=== PATIENT | male | born 1935 | race Caucasian/White ===

== ENCOUNTER 2017-01-17 10:30 | Inpatient (IN) | payer MEDICARE ==
[2017-01-17 11:54] LABS: #Basophils 0.1 thou/uL (0.0-0.2); #Eosinphils 0.2 thou/uL (0.0-0.7); #Lymphocytes 2.4 thou/uL (1.20-3.40); #Monocytes 0.8 thou/uL (0.11-0.59); #Neutrophils 5.1 thou/uL (1.40-6.50); %Basophils 0.8 % (0.0-1.0); %Eosinophils 2.1 % (0.0-10.0); %Lymphocytes 27.9 % (21.0-51.0); Hematocrit 50.5 % (42.0-52.0); Mean Platelet Volume 7.6 fL (7.4-10.4); Red Blood Cell (RBC) Count 5.49 mill/uL (4.70-6.10); White Blood Cell (WBC) Count 8.5 thou/uL (4.8-10.8)
[2017-01-17 12:09] LABS: ALT (SGPT) 27 U/L (8-55); AST (SGOT) 20 U/L (5-34); Alkaline Phosphatase 90 U/L (40-150); Anion Gap 13 mmol/L (10-20); BUN (Urea Nitrogen) 16 mg/dL (8.4-25.7); Bilirubin, Total 0.8 mg/dL (0.2-1.2); Calc. Creatinine Clearance 0 mL/min (70-130); Calcium 9.8 mg/dL (7.8-10.44); Carbon Dioxide 26 mmol/L (23-31); Chloride 103 mmol/L (98-107); Estimated GFR-MDRD 61; Globulin 3.7 g/dL (2.4-3.5); Protein, Total 8.1 g/dL (5.8-8.1)
[2017-01-17] MEDS ORDERED: ISOVUE-370 76%-LOCM 1 ML ONE (13:19)
--- NOTE | 2017-01-17 14:04 | CT ---
CTA OF THE HEAD AND NECK UTILIZING IV CONTRAST AND 3D REFORMATTED IMAGING: Date: 01/17/17 HISTORY: Right-sided Josh syndrome. TECHNIQUE: Multiple CTA images were obtained of the head and neck utilizing IV contrast and 3D reformatted imagi ng. FINDINGS: The visualized lung apices are clear. The visualized upper mediastinum appears within normal limits. The aortic arch and great vessels have a normal origin. The right common carotid artery is widely pat ent. The right internal carotid artery is widely patent. The left common carotid artery and cervical left internal carotid artery appear widely patent. There are vascular calcifications involving the cavernous segments of the carotid arteries bilaterally. No definite hemodynamically significant stenosis evident. Visualized aspects of the ACAs, MCAs, and child support investigator are widely patent. The right ASIC DESIGN ENGINEER has a origin. The basilar artery is patent. The vertebral art eries are widely patent. The left vertebral proximal segment is highly tortuous. There is scattered degenerative and osteoarthritic change of the visualized skeletal structures. The prevertebral soft tissues appear within normal limits. No lymphadenopathy is evident. The visualized aerodigestive tract appears within normal limits. No area of abnormal enhancement is seen involving t he brain parenchyma. IMPRESSION: 1. No hemodynamically significant stenosis demonstrated. 2. No lung apical mass or mediastinal lymphadenopathy demonstrated. 3. No lymphadenopathy or soft tissue mass of the neck demonstrated. 4. origin of the right ASIC DESIGN ENGINEER. 5. Other chronic findings as above. POS: [facility]
[2017-01-17] MEDS ORDERED: Aggrenox 200-25mg CAP PO SCH (14:30)
--- NOTE | 2017-01-17 15:25 | MRI ---
MRI BRAIN NONCONTRAST: History: Right sided Josh syndrome. FINDINGS: There is no evidence of acute intracranial hemorrhage or infarct. Diffuse cortical atrophy and mild chronic ischemic small vessel disease is apparent. Dystrophic calcification is associated with each basal ganglia. There is no mass effect or shift of midline structures. Visualized paranasal sinuses remain well aerated. IMPRESSION: No acute intracranial abnormalities are demonstrated. POS: [facility]
[2017-01-17 16:54] VITALS: BMI 26.1
[2017-01-17] MEDS ORDERED: Ondansetron ODT 4 MG TAB SL PRN (17:05)
[2017-01-17] MEDS ORDERED: Ondansetron HCl/PF 4 MG/2 ML Vial IVP PRN ×2 (17:05→19:05)
[2017-01-17] MEDS ORDERED: Acetaminophen 325 MG TAB PO PRN ×2 (17:05→19:05)
[2017-01-17] MEDS ORDERED: Senokot 8.6 MG TAB PO PRN (19:05)
[2017-01-17] MEDS ORDERED: Calcium Carbonate 500 MG ChewTAB PO PRN (19:05)
[2017-01-17] MEDS ORDERED: Ondansetron ODT 4 MG TAB PO PRN (19:05)
[2017-01-17] MEDS ORDERED: hydrALAZINE 20 MG/ML VIAL SLOW IVP PRN (19:10)
[2017-01-17] MEDS ORDERED: predniSONE 20 MG TAB PO SCH (19:30)
--- NOTE | 2017-01-17 19:38 | HP ---
DATE OF ADMISSION: 01/17/2017 PRIMARY CARE PHYSICIAN: Calixto Mabry M.D. PRIMARY PRODUCTION WEIGHER: Bryan Camarena M.D. CHIEF COMPLAINT: Double vision with right eye ptosis. CODE STATUS: FULL CODE. SURROGATE DECISION MAKER: The patient makes his own decision with the help of his family. HISTORY OF PRESENT ILLNESS: The patient is an 81-year-old male with coronary artery disease and hyp ertension, who presented to the emergency room with above complaints. Approximately one month ago, the patient developed sudden onset of right eye drooping along with tyesha ble vision. It started the next day after the flu shot. His symptoms progressively got worse. He denied any headache, swallowing difficulty, speech difficulty, weakness, numbness of any of his extr emities or sensory disturbances. He was evaluated by Ophthalmology 2 weeks ago and was started on c orticosteroid ointment with some improvement in the eyelid swelling. However, his double vision did not improve. Today, he was seen by Dr. Sanders, who advised him to go to the emergency room for ev aluation. In the emergency room, his initial vital signs showed temperature of 97.3, respirations 18, pulse of 80, blood pressure 124/78 with O2 saturation 95% on room air. CTA of the head and neck was negativ e. He also had an MRI of the brain that was negative for acute CVA. He received Aggrenox in the em ergency room for suspected CVA. PAST MEDICAL HISTORY: 1. Coronary artery disease status post CABG with stent placement followed by Dr. Camarena. 2. Hypertension. 3. Hyperlipidemia. 4. Gout. PAST SURGICAL HISTORY: 1. Cardiac catheterization. 2. Coronary artery bypass grafting. ALLERGIES: No known drug allergies. CURRENT HOME MEDICATIONS: Aspirin 81 mg daily, allopurinol 300 mg at bedtime, amitriptyline 10 mg a t bedtime, aspirin 81 mg daily, Lipitor 20 mg daily, Coreg 3.125 mg b.i.d., vitamin D3 1000 mg at be dtime, Nexium 40 mg daily, fish oil 350 mg daily, and Lisinopril 2.5 mg daily. SOCIAL HISTORY: The patient currently lives at home with his family. No history of smoking, alcoho l or drug use. FAMILY HISTORY: Mother of bone cancer at the age of 88. REVIEW OF SYSTEMS: The following complete review of systems was negative, unless otherwise mentione d in the HPI or below: Constitutional: Weight loss or gain, ability to conduct usual activities. Skin: Rash, itching. Eyes: Double vision, pain. ENT/Mouth: Nose bleeding, neck stiffness, pain, tenderness. Cardiovascular: Palpitations, dyspnea on exertion, orthopnea. Respiratory: Shortness of breath, wheezing, cough, hemoptysis, fever or night sweats. Gastrointestinal: Poor appetite, abdominal pain, heartburn, nausea, vomiting, constipation, or diar april. Genitourinary: Urgency, frequency, dysuria, nocturia. Musculoskeletal: Pain, swelling. Neurologic/Psychiatric: Anxiety, depression. Allergy/Immunologic: Skin rash, bleeding tendency. PHYSICAL EXAMINATION: VITAL SIGNS: As discussed above. GENERAL: An 81-year-old male in no significant distress. HEENT: Head, atraumatic and normocephalic. Right eye ptosis, pupils are slightly dilated. Good re sponse to light. His findings are consistent with third nerve palsy. He was unable to adduction. He had double vision when trying to focus. Moist mucous membranes. No oral lesion. NECK: Supple, no JVD, no carotid bruit. LUNGS: Clear to auscultation bilaterally. HEART: S1, S2 present. Regular rate and rhythm. No rubs or gallops. Healed midline scar from pre vious CABG. ABDOMEN: Soft, nontender, bowel sounds present. EXTREMITIES: No edema or calf tenderness. NEUROLOGIC: The cranial nerves were normal on examination. Power was 5/5 in all extremities. Fing er-to-nose and qbjg-yr-kdik test was normal. Reflexes were equivocal. Sensation to touch was nidia l bilaterally. SKIN: Warm and dry. LYMPH NODES: No palpable lymph nodes in the neck. PSYCHIATRY: Alert, awake, and oriented x3. PERIPHERAL VASCULAR: Radial pulses palpable bilaterally. MUSCULOSKELETAL: No joint swelling or tenderness. LABORATORY AND X-RAY FINDINGS: ESR and CRP in normal range. Cardiac enzymes are normal. BUN 16 an d creatinine 1.1. LFTs and electrolytes in normal range. CBC showed WBC 8.5 with hemoglobin 16.9 a nd hematocrit 50.5. Telemetry monitoring by my review showed sinus rhythm. IMPRESSION: 1. 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 2. Coronary artery disease, status post coronary artery bypass graft with stent placement. 3. Hypertension. 4. Dyslipidemia. 5. Chronic kidney disease stage 2. 6. Gout. PLAN: 1. The patient will be monitored in the stroke unit. Ophthalmology will be consulted. I discussed the case with Ophthalmology, Dr. Arndt. He recommended 60 mg prednisone on a daily basis. His s ymptoms are going on for approximately 1 month. I will also discuss with Neurology, Dr. Meza who re commended outpatient followup. The patient recently had an echocardiogram with Dr. Camarena. We will continue to monitor on the embedded case manager. We will continue aspirin for now. 2. Disposition probably in a.m. after ophthalmology evaluation. 3. Plan of care was discussed with the patient and the family at the bedside. They stated understa nding.
[2017-01-17] MEDS ORDERED: Atorvastatin Calcium 20 MG TAB PO SCH (21:00)
[2017-01-17] MEDS ORDERED: Allopurinol 300 MG TAB PO SCH (21:00)
[2017-01-17] MEDS ORDERED: Amitriptyline HCl 10 MG TAB PO SCH (21:00)
[2017-01-17] MEDS: Artificial Tears 18 DROP/0.9 ML R EYE SCH (21:22)
[2017-01-17] MEDS: Carvedilol 3.125 MG TAB PO SCH (21:25)
[2017-01-17] MEDS: Loteprednol Etabonate 0.5% Ophth Suspension 5 ml Bottle R EYE SCH (21:25)
[2017-01-18] MEDS ORDERED: Melatonin 3 MG TAB PO SCH (00:30)
[2017-01-18] MEDS: Artificial Tears 18 DROP/0.9 ML R EYE SCH ×5 (01:38→17:23)
[2017-01-18] MEDS: Loteprednol Etabonate 0.5% Ophth Suspension 5 ml Bottle R EYE SCH ×3 (08:41→17:23)
[2017-01-18] MEDS: Carvedilol 3.125 MG TAB PO SCH (08:42)
[2017-01-18] MEDS: predniSONE 20 MG TAB PO SCH ×3 (08:42→17:24)
[2017-01-18] MEDS ORDERED: Lisinopril 2.5 MG TAB PO SCH (09:00)
[2017-01-18] MEDS ORDERED: Aspirin 81 mg Enteric Coated Tablet PO SCH (09:00)
--- NOTE | 2017-01-18 11:01 | DIS ---
DATE OF DISCHARGE: 01/18/2017 DISCHARGE DISPOSITION: Home. FOLLOWUP: Follow up with Dr. Camarena in 1 week. The patient also follows Dr. Mabry. Follow up with Dr Arndt and Dr Meza. INPATIENT HEATER ROOM HELPER: Ophthalmology, Dr. Arndt. ALLERGIES: No known drug allergies. The patient was seen and examined on the day of discharge, denies any new complaints. No new focal neurologic deficits. BRIEF HOSPITAL COURSE: The patient is an 81-year-old male with coronary artery disease, status post CABG and hypertension, presented to the hospital with double vision with right eye ptosis of 1 month duration. The patient was sent to the emergency room by Dr. Sanders (Pipe Changer). Please refer to the history and physical for further details. The patient was admitted to the hospital with the diagnosis of suspected acute CVA. MRI of the brain was negative. CTA of the head and neck was hemodynamically significant for stenosis or aneurysm. The right PAYABLE REPRESENTATIVE was in origin. The case was discussed extensively with Ophthalmology, Dr. Arndt as well as Neurology, Dr. Maria Dolores Meza. The patient will continue 81 mg aspirin. He probably has ischemic right third nerve palsy. He was started on steroids. The patient was evaluated by Dr. Arndt (Ophthalmology). He recommended to increase Aspirin to 325 mg daily. FINAL DIAGNOSES: 1. Right third nerve palsy, suspected secondary to ischemia. 2. Coronary artery disease, status post coronary artery bypass graft and stent placement. 3. Hypertension. 4. Dyslipidemia. 5. Chronic kidney disease stage 2. 6. Gout. DISCHARGE MEDICATIONS: Same as admission medications: 1. Allopurinol 300 mg at bedtime. 2. Amitriptyline 10 mg at bedtime. 3. Aspirin 325 mg daily. (dose increased) 4. Lipitor 20 mg at bedtime. 5. Coreg 3.125 mg b.i.d. 6. Vitamin D3 1000 units daily. 7. Nexium 40 mg daily. 8. Fish oil 350 mg daily. 9. Lisinopril 2.5 mg daily. The patient will be discharged later today after cleared by Ophthalmology. [facility]
[2017-01-18 15:50] VITALS: BP 138/86; TEMP 97.7
== END 2017-01-18 17:13 | disposition home or self-care (01) | DRG 123 ==
LOC: ERS 10:30 → 2SE 14:21
PROVIDERS: ADMIT Internal Medicine; ATTEND Internal Medicine
DX: H49.01 Third [oculomotor] nerve palsy, right eye (principal); Z95.1 Presence of aortocoronary bypass graft; I12.9 Hypertensive chronic kidney disease with stage 1 through stage 4 chronic kidney disease, or unspecified chronic kidney disease; E78.5 Hyperlipidemia, unspecified; I25.10 Atherosclerotic heart disease of native coronary artery without angina pectoris; Z95.5 Presence of coronary angioplasty implant and graft; M10.9 Gout, unspecified; N18.2 Chronic kidney disease, stage 2 (mild)
CPT/HCPCS: 70496; 70498; 70551; 80053; 82553; 84484; 85025; 85652; 86140; J7506

== ENCOUNTER 2018-10-05 12:44 | Emergency (ER) | payer MEDICARE ==
[2018-10-05 14:14] LABS: #Eosinphils 0.3 thou/uL (0.0-0.7); #Lymphocytes 2.4 thou/uL (1.20-3.40); #Monocytes 0.9 thou/uL (0.11-0.59); #Neutrophils 6.1 thou/uL (1.40-6.50); %Basophils 0.4 % (0.0-1.0); %Eosinophils 3.4 % (0.0-10.0); %Lymphocytes 24.7 % (21.0-51.0); %Monocytes 9.2 % (0.0-10.0); %Neutrophils 62.4 % (42.0-75.0); Hemoglobin 14.8 g/dL (14.0-18.0); Mean Corpuscular HGB CONC 32.4 g/dL (32.0-36.0); Mean Corpuscular Hemoglobin 28.4 pg (27.0-31.0); Mean Corpuscular Volume 87.6 fL (78.0-98.0); Platelet Count 235 thou/uL (130-400); White Blood Cell (WBC) Count 9.8 thou/uL (4.8-10.8)
[2018-10-05 14:29] LABS: ALT (SGPT) 24 U/L (8-55); AST (SGOT) 21 U/L (5-34); Albumin 4.6 g/dL (3.4-4.8); Alkaline Phosphatase 132 U/L (40-150); Anion Gap 12 mmol/L (10-20); BUN (Urea Nitrogen) 18 mg/dL (8.4-25.7); Bilirubin, Total 0.9 mg/dL (0.2-1.2); Calc. Creatinine Clearance 0 mL/min (70-130); Calcium 10.2 mg/dL (7.8-10.44); Carbon Dioxide 25 mmol/L (23-31); Chloride 102 mmol/L (98-107); Estimated GFR-MDRD 80; Globulin 3.9 g/dL (2.4-3.5); Glucose 102 mg/dL (83-110); Potassium 4.1 mmol/L (3.5-5.1); Protein, Total 8.5 g/dL (5.8-8.1); Sodium 135 mmol/L (136-145)
[2018-10-05] MEDS ORDERED: HYDROcodone/Acetaminophen 5/325 mg Tablet ONE (15:03)
[2018-10-05 15:09] LABS: Bilirubin Negative (Negative); Blood, Urine Negative (Negative); Glucose, Urine (Dipstick) Negative (Negative); Leukocyte Negative (Negative); Nitrite Negative (Negative); Protein, Urine (Dipstick) Negative (Neg-Trace)
[2018-10-05 15:10] LABS: Clarity Clear (Clear)
--- NOTE | 2018-10-05 15:49 | RAD ---
LUMBAR SPINE 2 VIEWS: Date: 10/05/18 HISTORY: Low back pain since . History of chronic back pain. FINDINGS: Severe multilevel disc osteophytosis with mild levoscoliosis. Grade I/II anterolisthesis of L5 on S1. Stent material overlying the right upper abdomen, probably indwelling biliary stent. IMPRESSION: Severe spondylosis. Mild levoscoliosis. Chronic appearing anterolisthesis of L5 on S1. Other findings as above. POS: [facility]
== END 2018-10-05 16:18 | disposition home or self-care (01) ==
LOC: ERS 12:44
DX: M54.5 Low back pain (principal); K21.9 Gastro-esophageal reflux disease without esophagitis; E87.1 Hypo-osmolality and hyponatremia
CPT/HCPCS: 36415; 72100; 80053; 81003; 85025; 87086

== ENCOUNTER 2018-10-13 09:39 | Outpatient (CLI) | payer MEDICARE ==
[2018-10-13] MEDS ORDERED: ISOVUE-370 76%-LOCM 1 ML ONE (10:06)
--- NOTE | 2018-10-13 11:10 | CT ---
CT Abdomen Pelvis W WO con History: Malignant neoplasm ampulla Comparison: None. Findings: Given lack of comparison examination, treatment response is unable to be performed. Subtle nodule right lung base abutting the diaphragm measuring 5 mm. No pericardial effusion. Extensive biliary gas with intrahepatic and extrahepatic biliary dilatation. There is reflux of enter ic contrast in the distal common bile duct with abnormal hyperenhancement suggesting cholangitis. There appears be debris within the distal common bile duct stent. Mild dilatation of the pancreatic d uct. No definite pancreatic mass is appreciated. No abnormal vika hepatis adenopathy. Portal vein is patent. Spleen is intact. No nephrolithiasis. No hydronephrosis. Aortic contour is nonaneurysmal. No acute osseous abnormality. 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 Moderate diverticular disease of the sigmoid colon without active current inflammation. There appears be a large posterior bladder diverticulum measuring approximately 3.9 x 5 x 5 cm. Impression: 1. High-grade intrahepatic and extrahepatic biliary dilatation concerning for stent malfunction. Ther e is reflux of contrast within the distal common bile duct likely retrograde from the stent and less likely due to erosion and fistulization from the second portion of duodenum. 2. Abnormal hyperenhancement distal common bile duct suggesting cholangitis. 3. Mild dilatation of the pancreatic duct without definite mass appreciated. 4. No metastatic vika hepatis adenopathy. 5. Large posterior bladder diverticulum. 6. 5 mm nodule right lung base abutting the diaphragm. Recommend correlation with prior imaging. 7. Subtle round 11 mm hepatic segment 6 mass only seen on the delayed phase of contrast may be sequel ae of biliary dilatation and regenerative nodule below metastasis cannot be totally excluded.
== END 2018-10-13 09:40 | disposition home or self-care (01) ==
LOC: BICCT 09:39
PROVIDERS: ATTEND Radiology Radiation Oncology
DX: C24.1 Malignant neoplasm of ampulla of Vater (principal); N32.3 Diverticulum of bladder; R91.1 Solitary pulmonary nodule; K76.89 Other specified diseases of liver; K83.8 Other specified diseases of biliary tract; K86.89 Other specified diseases of pancreas; Z92.3 Personal history of irradiation; Z92.21 Personal history of antineoplastic chemotherapy
CPT/HCPCS: 74178; Q9966

== ENCOUNTER 2018-12-22 09:54 | Outpatient (CLI) | payer MEDICARE ==
[2018-12-22] MEDS ORDERED: ISOVUE-370 76%-LOCM 1 ML ONE (10:03)
--- NOTE | 2018-12-22 12:02 | CT ---
CT chest with IV contrast CT abdomen and pelvis with IV contrast HISTORY: Pancreatic cancer. Restaging. COMPARISON: 10/13/2018. FINDINGS: Mild atelectasis at each lung bases. The tiny noncalcified nodule at the lateral aspect of the right lung base abutting the diaphragmatic pleura is stable. No new nodules. No pneumothorax or mediastinal adenopathy.. Reflux of contrast into the dilated esophagus. Biliary stent remains in place with distention of the biliary system and pneumobilia similar in appea renny to the prior exam. Borderline distention of the pancreatic duct is stable. No mass is visible at the ampulla. Within the anterior segment right liver lobe, an ill-defined, subtle low density mass now measures up to 1.4 cm greatest diameter. It is significantly more conspicuous than on previous exams. On axial image 42, there is a subtle area of decreased density at the central portion of the liver ne ar the inferior vena cava which could represent an additional low density liver mass or mixing of contrast and blood within the central portion of the hepatic veins. Nonenlarged lymph nodes posterior to the aorta at the level of the left hemidiaphragm posteriorly is stable. Nonenlarged lymph nodes within the retroperitoneum are also stable. Calcification throughout the arterial structures with mild fusiform ectasia of the lower abdominal ao rta. Large diverticulum projecting right posterolateral eighth from the urinary bladder is stable. Bilateral pars interarticularis defects are apparent at the lumbosacral junction with grade 1 spondyl olisthesis. Prominent degenerative changes throughout the lumbar spine. IMPRESSION: Enlarging hypoechoic mass within the posterior segment right liver lobe. Favored to be a metastatic lesion. Subtle low-density area near the central upper liver adjacent to the inferior vena cava could represe nt an additional low density mass (or could be related to contrast/blood mixing within the hepatic veins) Biliary stent, pneumobilia, and biliary dilatation are stable. Tiny nodule at the right lung base is stable. Gastroesophageal reflux. Atherosclerosis
== END 2018-12-22 09:55 | disposition home or self-care (01) ==
LOC: BICCT 09:54
PROVIDERS: ATTEND Internal Medicine Hematology & Oncology
DX: C25.9 Malignant neoplasm of pancreas, unspecified (principal); K76.89 Other specified diseases of liver; R91.1 Solitary pulmonary nodule; K21.9 Gastro-esophageal reflux disease without esophagitis; I70.90 Unspecified atherosclerosis
CPT/HCPCS: 71260; 74177; 82565; Q9966

== ENCOUNTER 2019-03-22 09:07 | Outpatient (CLI) | payer MEDICARE ==
--- NOTE | 2019-03-22 11:26 | CT ---
CT OF CHEST AND ABDOMEN AND PELVIS PERFORMED WITH IV CONTRAST ENHANCEMENT: Date: 03/22/2019 HISTORY: Pancreatic cancer. Follow-up for evaluation of disease progression. History of chemotherapy and radia tion, cholecystectomy, and biliary status placement. COMPARISON: 12/22/2018 study. FINDINGS: CT CHEST: The lungs are clear of any infiltrative process. Small pleural based area of nodularity in the right lung base, axial image 35, is stable. The thoracic aorta is normal in caliber. Postop sternotomy changes are seen. No significant mediastin al or hilar adenopathy. Once again, within the apex of the left ventricle, is an area of low attenuat ion density and calcifications that may represent a small focus of thrombus. CT ABDOMEN PERFORMED WITH CONTRAST ENHANCEMENT: Pneumobilia is again noted within the liver. The degree of dilatation of the biliary tree is similar to the prior examination. The biliary stent remains in position. There has been a progression of the liver disease. The lesion within the more posterior aspect of the right lobe of the liver that mary ured 1.4 cm in AP dimension on the prior exam now measures 2.7 cm. The lesion which is just directly adjacent to the IVC is stable in appearance. It measures approximately 1.7 cm. There are now some sma ll low attenuation lesions seen in the dome of the liver on axial image 41 measuring in the 1.0 cm ra nge, not definitely visualized on the prior exam. Also, there is now an ill-defined area of low atten uation within the right lobe measuring 2.3 cm, axial image 45. Other vague hypodense areas within the more inferior aspect of the right lobe were not definitively visualized on the prior study. The spleen is unremarkable in appearance. Pancreatic duct remains prominent. These findings are stabl e as compared to the prior examination. Prominence to the pancreatic head is unchanged. Right and left adrenal glands, and right and left kidneys are normal in appearance. No significant pe riaortic or mesenteric adenopathy. Colonic diverticulosis is noted. CT PELVIS PERFORMED WITH CONTRAST ENHANCEMENT: No evidence of adenopathy, mass, or free fluid. There is a cystic appearing structure within the pelvis, which I think probably represents a divertic ulum from the bladder. It is unchanged in appearance. Prostate is mildly prominent. IMPRESSION: 1. Progression of liver disease as described above. 2. Persistent pneumobilia with a biliary stent in place. Gallbladder has also been removed. 3. Tiny pleural based nodularity along the right hemidiaphragm, stable. 4. Area of what may be scarring or small thrombus in the apex of the left ventricle, unchanged. 5. Colonic diverticulosis. POS: [facility]
[2019-03-22] MEDS ORDERED: Iopamidol-370 76% 500 ML 1 ML ONE (15:51)
== END 2019-03-22 09:08 | disposition home or self-care (01) ==
LOC: BICCT 09:07
PROVIDERS: ATTEND Internal Medicine Hematology & Oncology
DX: C25.0 Malignant neoplasm of head of pancreas (principal); K57.30 Diverticulosis of large intestine without perforation or abscess without bleeding; R91.1 Solitary pulmonary nodule; K83.8 Other specified diseases of biliary tract; K76.9 Liver disease, unspecified; Z96.89 Presence of other specified functional implants; Z90.49 Acquired absence of other specified parts of digestive tract
CPT/HCPCS: 71260; 74177; 82565

== ENCOUNTER → 2019-04-23 | Day surgery (SDC) | payer MEDICARE ==
[2019-04-22 14:45] VITALS: BMI 23.6
[~2019-04-23] MED LIST: Bupivacaine 0.25% HCL 30 ML VIAL ONE; Fentanyl 100 MCG/2 ML VIAL ONE; Lidocaine 1% PF 5 ML VIAL ONE; Lidocaine 1% w/Epinephrine 1:100K 20 ML VIAL ONE; PHENYLEPHRINE-NS 100 MCG/ML 10 ML SYRINGE ONE; PROPOFOL 200 MG/20 ML VIAL ONE; Sodium Chloride 0.9% 10 ML ONE
--- NOTE | 2019-04-23 10:21 | PDOC.OP ---
Operative Note - Operative Note Operative Note: PROCEDURE: Left internal jugular MediPort placement with ultrasound and fluoroscopic guidance DATE OF PROCEDURE: 04/23/2019 SURGEON: Donna Bowman M.D. PREOPERATIVE DIAGNOSIS: Pancreatic cancer POSTOPERATIVE DIAGNOSIS: Pancreatic cancer HISTORY: Patient has been diagnosed with unresectable pancreatic cancer. Chemotherapy has been recommended and a Mediport has been requested for this. OPERATIVE PROCEDURE IN DETAIL: After informed consent was obtained and appropriate preoperative antibiotics administered, the patient was taken to the operating room and placed in supine position and monitored anesthesia care was administered. The patient was then placed in Trendelenburg position and the patent compressible left internal jugular vein accessed easily on the first attempt under direct ultrasound guidance with excellent flow of dark venous non- pulsatile blood. A wire threaded easily and was confirmed to be in the compressible vein by ultrasound and with the tip in the superior vena cava by fluoroscopy. Additional local anesthesia was infused to the skin and subcutaneous tissues of the left neck and chest. A skin incision was made on the left chest and a subcutaneous pocket developed inferiorly. A Mediport was obtained and confirmed to fit in the subcutaneous pocket. This was secured inferiorly to the pectoralis fascia with a Prolene suture, which was clamped, but not tied. Mediport tubing was then tunneled from the chest to the left IJ access site subcutaneously. The dilator and sheath were then placed over the wire and the dilator and wire removed leaving the sheath in place. The clamped MediPort tubing was tunneled through the sheath, which was then split and removed leaving the MediPort tubing in place. The tubing unfortunately pulled back as the sheath was removed and the end flipped up into the left subclavian vein. The tubing was pulled back slightly and a wire wasadvanced back down into the vena cava and the tubing advanced until the tip was confirmed by fluoroscopy to be in the superior vena cava just above the atrium. The wire was removed and correct positioning of the catheter again confirmed. The tubing was clamped at the skin level and cut and the tubing secured to the port, which was then placed in the subcutaneous pocket. The previously placed suture was secured and two additional sutures were placed to fix the port in place within the pocket. The port was aspirated with the James needle and had excellent flow of dark venous non-pulsatile blood and easily flushed without resistance. The subcutaneous tissues were closed with a running Monocryl suture , following which the skin was closed with a running subcuticular Monocryl suture. Dermabond dressings were placed. The course of the catheter was confirmed by fluoroscopy to be smooth with the tip appropriately located in the superior vena cava. The patient was taken back to recovery in good condition. Estimated blood loss was minimal. There were no complications. There were no specimens.
--- NOTE | 2019-04-23 13:35 | RAD ---
CHEST 1 VIEW: Date: 04/23/2019 HISTORY: MediPort placement. FINDINGS: Heart size is within normal limits with postop sternotomy change. There is elevation of the right hem idiaphragm. Left-sided MediPort catheter has been placed. Catheter tip overlies the superior vena cav a. No signs of pneumothorax. Postoperative changes of the left shoulder noted. Severe arthritic changes and chronic rotator cuff n oted on the right. IMPRESSION: Left-sided MediPort catheter placed. Catheter tip overlying the superior vena cava. No signs of pneum othorax. POS: [facility]
== END ==
LOC: SDC 06:59
PROVIDERS: ATTEND Surgery
PROC: 02HV33Z Insertion of Infusion Device into Superior Vena Cava, Percutaneous Approach (ICD-10-PCS; principal; 2019-04-23)
DX: C25.9 Malignant neoplasm of pancreas, unspecified (principal); I10 Essential (primary) hypertension; I25.2 Old myocardial infarction; I25.10 Atherosclerotic heart disease of native coronary artery without angina pectoris; E78.5 Hyperlipidemia, unspecified; K21.9 Gastro-esophageal reflux disease without esophagitis; M10.9 Gout, unspecified; Z86.73 Personal history of transient ischemic attack (TIA), and cerebral infarction without residual deficits; Z79.02 Long term (current) use of antithrombotics/antiplatelets; Z79.82 Long term (current) use of aspirin; Z79.899 Other long term (current) drug therapy; Z95.1 Presence of aortocoronary bypass graft; Z95.5 Presence of coronary angioplasty implant and graft
CPT/HCPCS: 36561; 71045; C1788; J0690; J1642; J2001; J2704; J3010; S0020

== ENCOUNTER 2019-07-16 08:35 | Outpatient (CLI) | payer MEDICARE ==
[2019-07-16 09:15] LABS: Estimated GFR-MDRD - POC Greater than 90
[2019-07-16] MEDS ORDERED: Iopamidol-370 76% 500 ML 1 ML ONE (09:58)
--- NOTE | 2019-07-16 12:07 | CT ---
CT CHEST AND ABDOMEN AND PELVIS WITH IV CONTRAST: INDICATION: Pancreatitis cancer. Evaluate response to treatment. COMPARISON: Comparison is made to CT chest, abdomen, and pelvis dated 03/22/2019. FINDINGS: CT CHEST: Lung weber are well aerated. No infiltrate or effusion. The subtle nodularity in the right lower l obe which was described previously is again seen and is unchanged. Mediastinum is unremarkable with no evidence of adenopathy. Low-attenuation focus with associated calcification along the anterior wa ll of the left ventricle has been described and this is stable. No evidence of axillary adenopathy. Osseous structures unremarkable. IMPRESSION: Stable CT chest findings. No evidence of metastatic disease. CT ABDOMEN AND PELVIS: Prominent pneumobilia is again noted as previously described. There are numerous low-attenuation lesions again seen in the liver. However, these liver lesions hav e decreased in size and number when compared to the 03/22/2019 study. The largest lesion in the right lobe was previously measured at 2.7 cm AP dimension in the axial plane. This lesion is more ill-defi breanne today and measures in the 1.5 cm AP dimension range. Several other lesions in this area of the r ight lobe of the liver have decreased in size when compared to the prior study. Spleen unremarkable. The prominent pancreatic duct is unchanged in appearance. Biliary stent is unc hanged in appearance. The density in the region of the head of the pancreas is stable. Stomach and duodenum unremarkable. Adrenal gland is normal. Kidneys unremarkable. Small right renal cystic lesion is unchanged. The urinary bladder is mildly distended. A diverticulum arising from the posterior bladder is again seen and has been noted previously. This measures approximately 5-6 cm AP dimension and appears unch anged. Small bowel loops unremarkable. Scattered colonic diverticula again noted. Aorta is calcified and ectatic. Aortic diameter measured at 2.8 cm. No evidence of adenopathy. Review of the osseous structures shows a new compression fracture at the L1 vertebra. There is mild anterior wedging with superior end plate compression. There is loss of anterior height seen estimate d at 20%. Slight retropulsion of the posterior superior corner of L1. This mildly flattens the thec al sac but does not appear to result in significant central canal stenosis. The other vertebrae maintain height. Degenerative changes are again noted. There is a grade I anter olisthesis at L5-S1 with loss of disk space at L5-S1 which appears stable. IMPRESSION: 1. Improvement in the metastatic disease to the liver when compared to the prior exam. The liver le sions are smaller and have decreased in number. 2. There is a new compression deformity involving the L1 vertebra today as described above. 3. Bladder diverticulum. 4. Aortic ectasia with mild aneurysmal dilatation. POS: [facility]
== END 2019-07-16 08:36 | disposition home or self-care (01) ==
LOC: BICCT 08:35
PROVIDERS: ATTEND Internal Medicine Hematology & Oncology
DX: C25.0 Malignant neoplasm of head of pancreas (principal); C78.7 Secondary malignant neoplasm of liver and intrahepatic bile duct; N32.3 Diverticulum of bladder; M48.56XA Collapsed vertebra, not elsewhere classified, lumbar region, initial encounter for fracture; I71.9 Aortic aneurysm of unspecified site, without rupture; K76.9 Liver disease, unspecified
CPT/HCPCS: 71260; 74177; 82565; Q9967

== ENCOUNTER 2019-10-11 10:44 | Outpatient (CLI) | payer MEDICARE ==
[2019-10-11] MEDS ORDERED: Iopamidol 370 76% 100 ML VIAL ONE (11:25)
--- NOTE | 2019-10-11 13:06 | CT ---
CT CHEST AND ABDOMEN AND PELVIS WITH IV CONTRAST: INDICATION: Neoplasm of pancreas. Followup. COMPARISON: Comparison is made to CT chest, abdomen, and pelvis 07/16/2019. FINDINGS: CT CHEST: The lungs remain clear of infiltrate. Mild chronic parenchymal changes appear stable with interstiti al thickening. The nodular opacity seen in the right middle lobe, image 3 axial, remains stable. Tiny nodularity in the posterior right lung base is stable. Mediastinum unremarkable and stable. Probable small slidi ng diaphragmatic hernia. Osseous structures appear unremarkable. Probable small sliding diaphragmat ic hernia. Osseous structures appear unremarkable. Mild degenerative changes in the thoracic spine appear stable. IMPRESSION: Stable chest CT with no evidence of a metastatic lesion. CT ABDOMEN AND PELVIS: Biliary stent is again noted with intra- and extrahepatic biliary ductal dilatation and pneumobilia. This is a stable finding. Review of the liver again shows metastatic lesions to the liver. There has been progression of the h epatic metastatic disease when compared to the 07/16/2019 exam. The liver lesions have increased in si ze and number since that study. The largest lesion is in the peripheral right lobe of the liver mary uring up to 4 cm AP dimension today. On prior exam, there was ill-defined lucency in this region. Another larger lesion measures 2.2 cm in the posterior upper right lobe of the liver which is a new l esion. There is a new lesion in the more inferior right lobe anteriorly measuring 1.6 cm. An enlarg ing lesion in the inferior tip of the liver along the lateral surface measures 1.8 cm. There are oth er scattered lesions. Spleen is mildly enlarged but stable. Review of the pancreas again shows mildly prominent pancreatic duct which is unchanged. There is a m ultiloculated mass lesion which extends from the pancreatic head toward the midline which has increas ed in size when compared to prior exam. This now measures up to 3.1 cm width in the axial plane. Pr evious measurement was approximately 2.3 cm in the axial plane. Adrenal glands appear normal. Kidneys unremarkable. Small bowel loops unremarkable. Colon unremarkable. Aorta shows atherosclerotic change and mild ect gwen which has been noted previously. The spine shows degenerative change with degenerative disk changes prominent at L3-4, L4-5, and L5-S1 . Grade I anterolisthesis of L5-S1 is stable. The compression deformity at L1 is stable. Images through the pelvis again show a bladder diverticulum extending from the posterior bladder wall . This is a stable finding. IMPRESSION: 1. Progression of liver metastatic disease when compared to 07/16/2019. 2. 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 POS: AGW
== END 2019-10-11 10:45 | disposition home or self-care (01) ==
LOC: BICCT 10:44
PROVIDERS: ATTEND Internal Medicine Hematology & Oncology
DX: C25.0 Malignant neoplasm of head of pancreas (principal); C78.7 Secondary malignant neoplasm of liver and intrahepatic bile duct; K86.89 Other specified diseases of pancreas
CPT/HCPCS: 36415; 71260; 74177; 80053; 85025; 86301